=== PATIENT | male | born 1995 | race African-American/Black ===

== ENCOUNTER 2017-06-13 10:28 | Emergency (ER) | payer MEDICAID ==
[~2017-06-13] VITALS: Ht 190.5 cm; Wt 79.0 kg
[2017-06-13] MEDS ORDERED: KETOROLAC 60MG/2ML VIAL IM ONE (15:00)
[2017-06-13 15:15] VITALS: BP 115/72
== END 2017-06-13 16:02 | disposition home or self-care (01) ==
LOC: ER 13:32
DX: S16.1XXA Strain of muscle, fascia and tendon at neck level, initial encounter (principal); M25.512 Pain in left shoulder; V89.2XXA Person injured in unspecified motor-vehicle accident, traffic, initial encounter; Y93.89 Activity, other specified; Y92.89 Other specified places as the place of occurrence of the external cause; Y99.8 Other external cause status
CPT/HCPCS: 96372; 99283; J1885

== ENCOUNTER 2018-08-11 23:26 | Emergency (ER) | payer MEDICAID ==
[~2018-08-11] VITALS: Ht 188 cm; Wt 77.0 kg
[2018-08-11 23:53] VITALS: BP 129/69
[2018-08-12] MEDS ORDERED: BACITRACIN ZINC OINT UDPKT TOP ONE (00:45)
== END 2018-08-12 01:12 | disposition home or self-care (01) ==
LOC: ER 23:26
DX: S80.01XA Contusion of right knee, initial encounter (principal); S80.212A Abrasion, left knee, initial encounter; V49.49XA Driver injured in collision with other motor vehicles in traffic accident, initial encounter; Y93.89 Activity, other specified; Y92.488 Other paved roadways as the place of occurrence of the external cause
CPT/HCPCS: 99282

== ENCOUNTER 2019-01-31 16:41 | Emergency (ER) | payer MEDICAID ==
[~2019-01-31] VITALS: Ht 190.5 cm; Wt 75.0 kg
[2019-01-31] MEDS ORDERED: IBUPROFEN 600MG TABLET PO ONE (18:45)
[2019-01-31 19:19] LABS: BASOPHILS % 0.3 % (0.0-2.0); EOSINOPHILS % 0.6 % (0.0-5.0); HEMOGLOBIN. 14.2 g/dL (14.0-18.0); LYMPHOCYTES % 24.6 % (20.0-50.0); MEAN CORPUSCULAR HEMOGLOBIN 28.1 pg (28.0-32.0); MEAN CORPUSCULAR VOLUME 85.1 fL (80.0-94.0); MEAN PLATELET VOLUME 8.1 fl (7.4-10.4); MONOCYTES % 8.2 % (2.0-8.0); NEUTROPHILS % 66.3 % (40.0-76.0); PLATELET 175 x1000/uL (130-400); RED BLOOD CELL COUNT 5.06 mill/uL (4.7-6.1); RED CELL DISTRIBUTION WIDTH 13.8 % (11.6-14.6)
[2019-01-31 19:21] LABS: CHLORIDE 103 mEq/L (98-107)
[2019-01-31] MEDS ORDERED: OFLOXACIN OTIC DROPS/10 ML BOTTLE RIGHT EAR SCH (21:00)
[2019-01-31 21:04] VITALS: BP 125/70
== END 2019-01-31 21:06 | disposition home or self-care (01) ==
LOC: ER 16:41
DX: H60.8X1 Other otitis externa, right ear (principal)
CPT/HCPCS: 36415; 70486; 80048; 99284

== ENCOUNTER 2022-03-20 11:07 | Emergency (ER) | payer MEDICAID ==
[~2022-03-20] VITALS: Ht 177.8 cm; Wt 78.0 kg
[2022-03-20 11:52] VITALS: BP 128/74
== END 2022-03-20 15:15 | disposition home or self-care (01) ==
LOC: ER 11:07
DX: R05.8 Other specified cough (principal); R50.9 Fever, unspecified; Z20.822 Contact with and (suspected) exposure to COVID-19; R43.9 Unspecified disturbances of smell and taste; M79.18 Myalgia, other site
CPT/HCPCS: 87426; 87804; 99283; C9803

== ENCOUNTER 2023-10-17 16:20 | Emergency (ER) | payer SELFPAY ==
[~2023-10-17] VITALS: Ht 190.5 cm; Wt 81.6 kg
[2023-10-17 16:29] VITALS: BP 126/83; PULSE 87; RESP 16; TEMP 98.6; O2SAT 100
[2023-10-17] MEDS ORDERED: TOPUD MT (17:47)
[2023-10-17] MEDS ORDERED: ISOP30DR11 EACH EAR (17:47)
[2023-10-17] MEDS ORDERED: DIPH1TAB24 MT (17:47)
[2023-10-17] MEDS ORDERED: AZIT250T12 MT (17:47)
[2023-10-19 19:06] LABS: CHLAMYDIA TRACHOMATIS NAA Negative (Negative); NEISSERIA GONORRHOEAE NAA Negative (Negative)
== END 2023-10-17 22:13 | disposition home or self-care (01) ==
LOC: ER 16:20
DX: J02.9 Acute pharyngitis, unspecified (principal); H61.20 Impacted cerumen, unspecified ear; Z20.2 Contact with and (suspected) exposure to infections with a predominantly sexual mode of transmission; Z20.822 Contact with and (suspected) exposure to COVID-19
CPT/HCPCS: 87426; 87491; 87591; 99283